=== PATIENT | male | born 1960 | race Caucasian/White ===

== ENCOUNTER 2020-11-14 08:16 | Outpatient (CLI) | payer OTHER, SELFPAY ==
--- NOTE | ~2020-11-14 | CT_ITS ---
EXAMINATION: CT abdomen pelvis wo con EXAM DATE: 11/14/2020 08:47 INDICATION: Left flank pain, hematuria. TECHNIQUE: Spiral CT of the abdomen and pelvis was performed without contrast. Axial, coronal and sag ittal images were reviewed. The dose-length product (DLP) for this examination was 917.67 mGy-cm. T he exposure was tailored according to patient size (auto mA exposure control), and iterative reconstr uction (ASIR) was used as additional dose reduction technique. Comparison is made to prior examinatio n from 09/20/2013. FINDINGS: There is a stone in the mid aspect left ureter measuring 9 mm transverse dimension by 1.6 cm craniocaudal dimension. There are several smaller stones proximal to this. There is moderate left- sided hydronephrosis, without appreciable perinephric fat stranding. The prostate is unremarkable. The bladder is unremarkable. The liver, spleen, adrenal glands and pancreas are unremarkable. There are some tiny gallbladder stones. Gallbladder otherwise unremarkable. There is no retroperitoneal o r pelvic lymphadenopathy. There is mild scattered arteriosclerotic disease. There is mild colonic diverticulosis. There is no adjacent inflammatory change to suggest diverticul itis. The appendix is normal. There is small to moderate-sized gastroesophageal hiatal hernia. Ther e is expected amount of colonic stool. No free intraperitoneal gas. The heart is normal in size. There are no pericardial or pleural effusions. The lung bases are unremarkable. There are no osteo blastic or osteolytic lesions identified. IMPRESSION: 1. Left mid ureteral stones, largest measuring 9 x 16 mm. Moderate hydronephrosis. 2. Mild colonic diverticulosis. 3. Cholelithiasis. Reviewed, dictated and finalized at location A. IMPRESSION: 1. Left mid ureteral stones, largest measuring 9 x 16 mm. Moderate hydronephro sis. 2. Mild colonic diverticulosis. 3. Cholelithiasis.
== END 2020-11-14 08:17 | disposition home or self-care (01) ==
PROVIDERS: PCP Internal Medicine; Visit Provider Internal Medicine
DX: R31.9 Hematuria, unspecified (principal); R10.9 Unspecified abdominal pain; N13.2 Hydronephrosis with renal and ureteral calculous obstruction; K80.20 Calculus of gallbladder without cholecystitis without obstruction; K57.30 Diverticulosis of large intestine without perforation or abscess without bleeding
CPT/HCPCS: 74176

== ENCOUNTER 2020-11-19 15:34 | Outpatient (CLI) | payer OTHER, SELFPAY ==
--- NOTE | ~2020-11-19 | XR_ITS ---
EXAMINATION: XR abdomen/kub 1V DATE: 11/19/2020 15:54 INDICATION: Left kidney stone. TECHNIQUE: A supine view of the abdomen on 2 radiographs was obtained. COMPARISON: CT abdomen and pelvis 11/14/2020 FINDINGS: There are no dilated loops of bowel. There is a 16 x 10 mm stone in distal left ureter over lying the sacrum. There is a phlebolith in right pelvis. IMPRESSION: 1. 16 x 10 mm stone in distal left ureter. Reviewed, dictated and finalized at location A.
== END 2020-11-19 15:35 | disposition home or self-care (01) ==
LOC: CHSIMG 15:36
PROVIDERS: PCP Internal Medicine; Visit Provider Nurse Practitioner Adult Health
DX: N21.1 Calculus in urethra (principal)
CPT/HCPCS: 74018

== ENCOUNTER 2020-11-22 09:17 | Outpatient (CLI) | payer OTHER, SELFPAY ==
--- NOTE | 2020-11-22 09:30 | ECG_ITS ---
Measurements Intervals [place] Rate: 65 P: 26 NV: 185 QRS: -5 QRSD: 91 T: -3 QT: 379 QTc: 396 Interpretive Statements SINUS RHYTHM CONSIDER INFERIOR INFARCT, AGE INDETERMINATE BASELINE ARTIFACT- I, II ABNORMAL ECG Electronically Signed On 11-22-2020 9:48:37 CDT by Myles Marinelli D.O.
[2020-11-22 09:55] LABS: Anion Gap 12 mmol/L (8-16); Blood Urea Nitrogen 25 mg/dL (9-20); Calcium 10.1 mg/dL (8.4-10.2); Carbon Dioxide 28 mmol/L (22-30); Chloride 99 mmol/L (98-107); Estimated Glomerular Filt Rate > 60; Glucose 277 mg/dL (65-110); Potassium 4.2 mmol/L (3.4-5.0); Sodium 139 mmol/L (137-145)
[2020-11-22 09:57] LABS: INR 0.9; Partial Thromboplastin Time 24.2 SECONDS (22.3-36.8); Prothrombin Time 11.7 Seconds (11.1-14.7)
== END 2020-11-22 09:18 | disposition home or self-care (01) ==
LOC: ANHSURGERY 09:23
PROVIDERS: Anesthesiology; PCP Internal Medicine; Visit Provider Urology
DX: N20.1 Calculus of ureter (principal); E11.9 Type 2 diabetes mellitus without complications; I10 Essential (primary) hypertension; Z01.818 Encounter for other preprocedural examination; R94.31 Abnormal electrocardiogram [ECG] [EKG]
CPT/HCPCS: 36415; 80048; 85610; 85730; 93005

== ENCOUNTER 2020-11-23 00:35 | Day surgery (SDC) | payer OTHER, SELFPAY ==
[2020-11-20 13:08] VITALS: BMI 33.1
[2020-11-23] VITALS (7 sets, daily range): BP systolic 122–139; BP diastolic 79–93; PULSE 61–86; RESP 12–20; TEMP 36.2–36.8; O2SAT 95–100
--- NOTE | ~2020-11-23 | XR_ITS ---
XR abdomen/kub 1V DATE: 11/23/2020 09:27 INDICATION: Lithotripsy TECHNIQUE: AP projection, 2 views COMPARISON: 11/20/2011 KUB 11/14/2020 CT abdomen pelvis noncontrast examination FINDINGS: There is a persistent large up to 9 x 16 mm calcified calculus or calculi of the distal lef t ureter, unchanged in position since 11/19/2020. The psoas shadows are intact. No visceromegaly. There is a moderately prominent amount of fecal mater ial within the colon but no apparent bowel obstruction. IMPRESSION: Persistent 9 x 16 mm calcified calculus or calculi of distal left ureter approximately 4. 5 cm proximal to left ureterovesical junction Reviewed, dictated and finalized at Location A. Reviewed, dictated and finalized at location A. IMPRESSION: Persistent 9 x 16 mm calcified calculus or calculi of distal left u reter approximately 4.5 cm proximal to left ureterovesical junction
--- NOTE | 2020-11-23 06:53 | WPDHPUPDATE1 ---
History and Physical Update Update Date/Time: 11/23/20 06:53 History and Physical has been reviewed, including an updated exam of the patient. There are NO changes in the patient's condition. Risks, benefits, and alternatives have been discussed and questions answered. Patient agrees to proceed with procedure.
[2020-11-23] MEDS: LACTATED RINGERS 1,000 ML 30 ML IV CONT (10:00)
--- NOTE | 2020-11-23 10:04 | SUR.PREOP ---
Informed Dr Moura of blood sugar 218.
[2020-11-23 10:06] LABS: Glucose Point of Care 218 mg/dl (65-105)
--- NOTE | 2020-11-23 10:08 | P.PNAN_ITS ---
Anes - Initial Pre Proc Eval Procedure: Operation Date: 11/23/20 11:30 Proposed Procedures p Left Ureteral Extracorporeal Shock Wave Lithotripsy - Curtis Queen MD s Cystoscopy, Left Retrograde Pyelogram, Left Stent Placement - Curtis Queen MD Date/Time: 11/23/20 10:08 Surgeon: Curtis Queen MD Pre Op Diagnosis: 16mm left ureteral stone Patient Data Age: 60 Gender: M Height: 1.73 m Weight: 97.4 kg Last Vital Signs Temp 36.8 C 11/23/20 09:47 Pulse 86 11/23/20 09:47 Resp 16 11/23/20 09:47 BP 139/93 H 11/23/20 09:47 Pulse Ox 98 11/23/20 09:47 Allergies Allergy/AdvReac Type Severity Reaction Status Date / Time No Known Allergies Allergy Verified 11/23/20 09:35 Home Medications Medication Instructions Recorded Confirmed Type amlodipine 5 mg PO HS 11/20/20 11/23/20 History ascorbic acid (vitamin C) [Vitamin 500 mg PO WEEKLY 11/20/20 11/23/20 History C] cholecalciferol (vitamin D3) 125 mcg PO WEEKLY 11/20/20 11/23/20 History [Vitamin D3] empagliflozin [Jardiance] 25 mg PO DAILY 11/20/20 11/23/20 History glipizide-metformin 1 tablet PO BID 11/20/20 11/23/20 History levothyroxine 75 mcg PO DAILY 11/20/20 11/23/20 History meloxicam 15 mg PO DAILY PRN 11/20/20 11/23/20 History pravastatin 20 mg PO HS 11/20/20 11/23/20 History quinapril 40 mg PO DAILY 11/20/20 11/23/20 History vitamin A 3,000 mcg PO WEEKLY 11/20/20 11/23/20 History zinc 15 mg PO WEEKLY 11/20/20 11/23/20 History Laboratory Tests 11/23/20 10:03 POC Capillary Glucose 218 mg/dl H mg/dl (65-105) Patient hx anesthesia problems: none Family hx anesthesia problems: none Results Review: All pre-operative results and documents have been reviewed as part of the pre-operative evaluation. [facility] Past Medical History Medical History Diabetes Hypertension Hypothyroid Social History Social History Smoking packs per day: 1 Smoking cigarettes per day: 20.0 Years smoked: 15 Smoking pack-years: 15.00 Smoking status: Former smoker Tobacco type: cigarettes Smoking end date: 02/09/90 Alcohol intake: never Substance use: never Substance use type: does not use Living arrangements: with family Spiritual care concerns: No Anes - Eval Final PreProcedure Day of Procedure 11/23/20 10:08 Patient weight: obese Heart: regular rate and rhythm Lungs: clear to auscultation Airway: Mallampati scale class II Neurological: alert and oriented Last oral intake: >/= 8 hours ASA classification: III Emergent: no Anesthetic plan: proceed Anesthesia type and monitoring: general LMA and standard monitoring Results Review: All pre-operative results and documents have been reviewed as part of the pre-operative evaluation. Informed Consent: The patient's anesthetic plan and its attendant risks and benefits were discussed with the patient/family/POA. Questions were solicited and answers provided to the satisfaction of the patient/family/POA.
[2020-11-23] MEDS: ceFAZolin 2 GM/D5W 50 ML 2 GM/50 ML BAG IVPB (11:44)
--- NOTE | 2020-11-23 12:07 | P.OP_ITS ---
Procedure Note - Detailed Date of Procedure 11/23/20 Pre-op Diagnosis 16mm left ureteral stone Post-op Diagnosis same Procedure Performed Cystoscopy, left ureteral stent placement and left ESWL Surgeon Curtis Queen MD Anesthesia general Description of Procedure The patient was brought to the operative suite where he was placed in the supine position on the Dornier lithotripter table. Flexible cystoscopy was undertaken with a 16F flexible cystoscopy. There were no urethral strictures. The prostatic urethra estimated length was 1.5cm. There was mild obstruction of the prostatic urethra with no median lobe enlargement. The bladder mucosa was normal and there was a single, orthotopic ureteral orifice bilaterally. A 0.035 glidewire was advanced into the left renal pelvis under fluoroscopy. A 4.8F J-J ureteral stent was positioned with the proximal coil in the renal pelvis and the distal coil in the bladder. The patient was then repositioned in the supine position with the focal point of the lithotriptor on a 16mm left mid- ureteral calculus. A total of 2500 shocks were delivered at a power setting of 4. There appeared to be good fragmentation of the stone. The patient tolerated the procedure well and was taken to the recovery room in good condition. Estimated Blood Loss 0 Drains Yes (4.8F left ureteral stent) Packing No Pathology none sent Complications No immediate complications Condition stable Disposition PACU
[2020-11-23 12:51] LABS: Glucose Point of Care 191 mg/dl (65-105)
== END 2020-11-23 14:30 | disposition home or self-care (01) ==
PROVIDERS: PCP Internal Medicine; Visit Provider Urology
PROC: (CPT 50590; principal; 2020-11-23 11:30)
PROC: (CPT 52352; 2020-11-23 11:30)
DX: N20.1 Calculus of ureter (principal); E03.9 Hypothyroidism, unspecified; E11.9 Type 2 diabetes mellitus without complications; I10 Essential (primary) hypertension; Z87.891 Personal history of nicotine dependence; E66.9 Obesity, unspecified; Z68.32 Body mass index [BMI] 32.0-32.9, adult
CPT/HCPCS: 52332; 50590; 36415; 74018; 80048; 82948; 85610; 85730; 93005; A9270; C1769; C2617; J0690; J1100; J2250; J2370; J2405; J2704; J3010; J7030; J7120

== ENCOUNTER 2020-12-04 13:54 | Outpatient (CLI) | payer OTHER, SELFPAY ==
--- NOTE | ~2020-12-04 | XR_ITS ---
XR abdomen/kub 1V 12/04/2020 14:06 Indication: Ureteral stone Procedure: KUB Comparison: Comparison to multiple prior studies sequentially, with oldest reviewed study dated 11/09. Findings: Bowel gas pattern is nonobstructive. Moderate colonic fecal loading. No renal/ureteral ston es are identified. No acute osseous abnormality. The distal left ureteral stone seen on prior examina tion not appreciated on the current study. Impression: 1: No acute abdominal abnormality. Left internal ureteral stent in expected position. Reviewed, dictated and finalized at location A. Impression: 1: No acute abdominal abnormality. Left internal ureteral stent in expected pos ition.
== END 2020-12-04 13:55 | disposition home or self-care (01) ==
LOC: ANHIMG 13:55
PROVIDERS: PCP Internal Medicine; Visit Provider Urology
DX: N20.1 Calculus of ureter (principal)
CPT/HCPCS: 74018

== ENCOUNTER 2021-11-04 10:47 | Outpatient (CLI) | payer OTHER, SELFPAY ==
--- NOTE | ~2021-11-04 | XR_ITS ---
EXAMINATION:XR_CERV2-3V_CR DATE: 11/04/2021 11:12 INDICATION: Neck pain TECHNIQUE: AP, lateral, lateral swimmers and odontoid views of the cervical spine are provided. COMPARISON: None FINDINGS: Alignment is normal. The odontoid is intact. No fracture is identified. The vertebral body heights are normal. There is mild loss of intervertebral disc space height at C6-7. Small degenerativ e osteophytes project from the anterior endplates of multiple vertebral bodies. Prevertebral soft tis sues are normal. IMPRESSION: 1. Mild cervical spondylosis without acute findings. Reviewed, dictated and finalized at location A.
== END 2021-11-04 10:48 | disposition home or self-care (01) ==
LOC: CHSIMG 10:53
PROVIDERS: PCP Internal Medicine; Visit Provider Internal Medicine
DX: M54.2 Cervicalgia (principal); M54.10 Radiculopathy, site unspecified
CPT/HCPCS: 72040

== ENCOUNTER 2021-11-11 07:47 | Outpatient (RCR) | payer OTHER, SELFPAY ==
--- NOTE | 2021-11-11 08:55 | PTOPEVAL1 ---
Assessment and note entered by Malika Young, PT Evaluation Information Diagnosis neck pain, numbness in L UE Onset 10/24/21 Subjective Information Jaskaran reports he had an onset of numbness in the left underarm on 10/24/21. He was taken to the ER for possible heart conditions. He was cleared for heart conditions so he went to his primary care doctor the following week and was told he had a pinched nerve. He had a x-ray of the cervical spine that showed arthritis. He was referred to PT and was prescribed a steroid pack. He is noting less numbness in his hand but he continues to have numbness in the left elbow. He also has mild pain in the left side of the neck when he turns his head to the left. Reported Pain Level Pain Score 1,1: Self Report Assessment PT Clinical Summary Jaskaran Klein presents with numbness in the left upper extremity that started about 3 weeks ago. He is noting increased symptoms when turning his head to the left. He objectively demonstrates poor posture, decreased and painful cervical AROM, and reproduction of symptoms with radial nerve glides. He will benefit from skilled PT to address these limitations. Plan of Care Interventions Hot Pack/Cold Pack,Manual Therapy,Mechanical Traction,Patient/Caregiver Educati,Therapeutic Exercise PT Services Indicated Yes Treatment Frequency and 3 times a week for 2 weeks for a total of 6 visits Duration These treatments will address the objective and functional deficits as defined above. The patient will be advanced safely and appropriately in order for the patient to progress towards his/her prior level of function. Additional exercises will be introduced and as well as a comprehensive home exercise program upon discharge, if needed, ?to ensure carryover of functional gains achieved in the clinic. This treatment plan has been reviewed and agreement upon by the patient.
== END 2021-11-22 23:59 | disposition home or self-care (01) ==
LOC: CHSPT 07:47
PROVIDERS: PCP Internal Medicine; Visit Provider Internal Medicine
DX: M54.2 Cervicalgia (principal)
CPT/HCPCS: 97012; 97014; 97110; 97140; 97161; G0283

== ENCOUNTER 2022-03-21 08:11 | Outpatient (CLI) | payer OTHER, SELFPAY ==
[2022-03-21 08:34] LABS: Hematocrit 44.8 % (40.0-54.0); Hemoglobin 14.8 g/dL (14.0-18.0); Mean Corpuscular Hemoglobin 31.6 pg (27.0-31.0); Mean Corpuscular Volume 95.7 fL (78.0-102.0); Mean Platelet Volume 11.4 fl (8.7-11.0); Platelet Count Result 208 K/mm3 (150-420); Red Blood Count 4.68 M/mm3 (4.70-6.10); Red Cell Distribution Width 12.7 % (11.6-14.4); White Blood Count 5.9 K/mm3 (4.8-10.8)
[2022-03-21 08:44] LABS: Add Urine Microscopic? YES; Appearance Urine Clear (Clear); Bilirubin Urine Negative (Negative); Blood Urine Negative (Negative); Color Urine Yellow (Yellow); Glucose Urine UA 3+ (Negative); Ketones Urine 1+ (Negative); Leukocyte Esterase Ur Negative (Negative); Nitrate Urine Negative (Negative); Protein Urine Negative (Negative); Specific Grav Ur 1.015 (1.010-1.020); Urobilinogen Urine 0.2 mg/dL (0.2-1.0); pH Urine 5.5 (5.0-8.0)
[2022-03-21 08:50] LABS: Bacteria Urine None seen /hpf; Hemoglobin A1C 11.1 % (<5.7); RBC Urine None seen /hpf (0-2); WBC Urine None seen /hpf (0-3)
[2022-03-21 09:02] LABS: Band Neutrophils Percent 1 % (0-6); Basophils Absolute Manual 0.05 K/mm3 (0-0.1); Basophils Percent Manual 1 % (0-1); Eosinophils Absolute Manual 0.35 K/mm3 (0.02-0.5); Eosinophils Percent Manual 6 % (1-6); Lymphocytes Percent Manual 39 % (18-44); Monocytes Absolute Manual 0.47 K/mm3 (0.1-0.90); Monocytes Percent Manual 8 % (3-9); Neutrophils Absolute Manual 2.71 K/mm3 (1.3-6.7); Neutrophils Percent Manual 45 % (46-73); Platelet Estimate Adequate (Adequate); Schistocytes None Seen (NORMAL); Total Cells Counted 100
[2022-03-21 09:24] LABS: Albumin Level 3.8 g/dL (3.4-5.0); Alkaline Phosphatase 770 U/L (46-116); Amylase 99 U/L (25-115); Anion Gap 11 mmol/L (8-16); Aspartate Amino Transferase 391 U/L (15-37); Bilirubin,Total 2.2 mg/dL (0.00-1.00); Blood Urea Nitrogen 17 mg/dL (7-18); Calcium 9.2 mg/dL (8.5-10.1); Carbon Dioxide 26 mmol/L (21-32); Chloride 101 mmol/L (98-108); Estimated Glomerular Filt Rate > 60; Free T3 1.82 pg/mL (2.18-3.98); Free T4 Free Thyroxine 1.03 ng/dL (0.76-1.46); Glucose 210 mg/dL (70-99); Osmolality Calculated 293 mOsm/kg (285-295); Sodium 138 mmol/L (136-145); Thyroid Stimulating Hormone 8.59 uIU/mL (0.36-3.74)
[2022-03-21 09:30] LABS: Alanine Aminotransferase > 1000 U/L (16-63)
[2022-03-21 09:36] LABS: Lipase 281 U/L (16-77)
== END 2022-03-21 08:12 | disposition home or self-care (01) ==
LOC: CHSLAB 08:13
PROVIDERS: PCP Internal Medicine; Visit Provider Internal Medicine
DX: I10 Essential (primary) hypertension (principal); E11.9 Type 2 diabetes mellitus without complications; K85.90 Acute pancreatitis without necrosis or infection, unspecified
CPT/HCPCS: 36415; 80053; 81001; 82150; 83036; 83690; 84439; 84443; 84481; 85025

== ENCOUNTER 2022-03-24 08:01 | Outpatient (CLI) | payer OTHER, SELFPAY ==
--- NOTE | ~2022-03-24 | US_ITS ---
Limited Abdominal Sonogram: Real-time sonographic imaging of the right upper quadrant was performed. Clinical History: Pancreatitis Findings: The liver appears minimally echogenic, with no evidence of mass lesion or bile duct dilata tion. Main portal vein is patent. The gallbladder is well distended, and contains small layering gall stones. No gallbladder wall thickening. The common bile duct measures 10 mm. Questionable 2.5 cm hypo echoic area of prominence of the pancreatic head. Impression: Cholelithiasis. Questionable 2.5 cm hypoechoic area of prominence the pancreatic head. This could be related normal p ancreatic parenchyma, however consider contrast enhanced CT to better exclude mass lesion Reviewed, dictated and finalized at location . EM PROGRAMMER Impression: Cholelithiasis. Questionable 2.5 cm hypoechoic area of prominence the pancreatic head. This cou ld be related normal pancreatic parenchyma, however consider contrast enhanced CT to better exclude mass lesion
== END 2022-03-24 08:02 | disposition home or self-care (01) ==
LOC: CHSIMG 08:02
PROVIDERS: PCP Internal Medicine; Visit Provider Internal Medicine
DX: I10 Essential (primary) hypertension (principal); E11.9 Type 2 diabetes mellitus without complications; K85.90 Acute pancreatitis without necrosis or infection, unspecified; K80.20 Calculus of gallbladder without cholecystitis without obstruction
CPT/HCPCS: 76705

== ENCOUNTER 2022-03-26 07:50 | Outpatient (CLI) | payer OTHER, SELFPAY ==
--- NOTE | ~2022-03-26 | CT_ITS ---
EXAMINATION: CT abdomen pelvis wo/w con DATE: 03/26/2022 08:38 INDICATION: Possible pancreatic mass TECHNIQUE: Computed tomography (CT) of the abdomen was performed without intravenous contrast. After the ministration of 100 mL Omnipaque 350 intravenous contrast, CT of the abdomen was performed in the arterial phase and subsequent CT of the abdomen and pelvis was performed in the portal venous phase. The dose-length product (DLP) was 1352.52 mGy-cm. Automated exposure control and iterative reconstru ction technique were employed. COMPARISON: 11/14/2020 FINDINGS: The lung bases are clear. The heart size is normal. There is a small sliding hiatal hernia. There is a 6 mm arterially enhancing mass in liver segment VII which fades to near isodense on the p ortal venous phase, likely a flash filling hemangioma or focal nodular hyperplasia. The spleen and ad renal glands are normal. Stones are present in the gallbladder which is mildly distended. No perichol ecystic inflammatory change is seen. There is a 3.4 x 2.2 cm heterogeneous mass in the head of the pa ncreas. The pancreatic duct is mildly dilated measuring up to 6 mm. There are punctate calcifications of the pancreas. There is a 1.9 x 1.5 cm enhancing mass of the left kidney lower pole. Small cysts o f the right kidney measure up to 3 mm. There is calcified atherosclerosis of the aorta and many of th e other arteries. No pathologically enlarged abdominal or pelvic lymph nodes are identified. No free intraperitoneal gas or evidence of bowel obstruction. The appendix is normal. There is mild thoracolu mbar spondylosis. A moderate volume of colonic stool is present. IMPRESSION: 1. Heterogeneous mass of the pancreatic head measuring up to 3.4 cm with mild enlargement of the panc reatic duct and mild intrahepatic and extra hepatic biliary dilatation. Although finding could be due to prior pancreatitis, finding is most concerning for adenocarcinoma. Endoscopic ultrasound is recom mended. 2. Enhancing mass of the left kidney lower pole, consistent with renal cell carcinoma. Urologic evalu ation is recommended. 3. Cholelithiasis with mild enlargement of the gallbladder, likely due to pancreatic head mass rather than cholecystitis. Reviewed, dictated and finalized at location B. E STOCK HELP IMPRESSION: 1. Heterogeneous mass of the pancreatic head measuring up to 3.4 cm with mild e nlargement of the pancreatic duct and mild intrahepatic and extra hepatic bilia ry dilatation. Although finding could be due to prior pancreatitis, finding is most concerning for adenocarcinoma. Endoscopic ultrasound is recommended. 2. Enhancing mass of the left kidney lower pole, consistent with renal cell car cinoma. Urologic evaluation is recommended. 3. Cholelithiasis with mild enlargement of the gallbladder, likely due to pancr eatic head mass rather than cholecystitis.
== END 2022-03-26 07:51 | disposition home or self-care (01) ==
LOC: CHSIMG 07:52
PROVIDERS: PCP Internal Medicine; Visit Provider Internal Medicine
DX: C25.9 Malignant neoplasm of pancreas, unspecified (principal); N28.9 Disorder of kidney and ureter, unspecified; K80.20 Calculus of gallbladder without cholecystitis without obstruction
CPT/HCPCS: 74178; Q9967

== ENCOUNTER 2023-02-13 13:45 | Outpatient (CLI) | payer OTHER, SELFPAY ==
--- NOTE | ~2023-02-13 | XR_ITS ---
EXAMINATION: XR lumbar spine 2-3V DATE: 02/13/2023 14:22 INDICATION: Low back pain. TECHNIQUE: 3 views of lumbar spine were obtained. COMPARISON: None. FINDINGS: There is 4 degrees levocurvature of lumbar spine. Vertebral body heights and intervertebral disc heights are normal. There are endplate osteophytes at most levels. There is severe lower lumbar facet joint osteoarthritis. A permanent biliary stent is noted. IMPRESSION: 1. Mild lumbar spondylosis. Reviewed, dictated and finalized at location E. OTHERAPIST IMPRESSION: 1. Mild lumbar spondylosis.
== END 2023-02-13 13:46 | disposition home or self-care (01) ==
PROVIDERS: PCP Internal Medicine; Visit Provider Internal Medicine
DX: M54.50 Low back pain, unspecified (principal); M54.17 Radiculopathy, lumbosacral region; C25.9 Malignant neoplasm of pancreas, unspecified; M43.06 Spondylolysis, lumbar region
CPT/HCPCS: 72100